=== PATIENT | male | born 1980 | race Caucasian/White ===

== ENCOUNTER 2019-01-10 15:41 | Observation (INO) | payer BC, OTHER ==
[~2019-01-10] VITALS: Ht 175.3 cm; Wt 74.9 kg
[2019-01-10 16:00] LABS: Base Excess Venous 1.8 mmol/L; Bicarbonate Venous 25.6 mmol/L (24.0-30.0); PCO2 Venous 44.1 mmHg (38-42); PO2 Venous 180 mmHg (38-42); pH Blood Venous 7.39 (7.34-7.37)
[2019-01-10 16:05] LABS: Chloride (POC) 107 mmol/L (98-108); Creatinine (POC) 1.2 mg/dL (0.8-1.3); Glucose (ISTAT POC) 89 mg/dL (70-99); Hemoglobin (POC) 13.9 g/dL (13.5-17.5); Potassium (POC) 3.7 mmol/L (3.5-5.5); Sodium (POC) 141 mmol/L (135-148); Total CO2 (POC) 25 mmol/L (21-32)
[2019-01-10 16:09] LABS: BASOPHILS ABSOLUTE AUTO 0.02 K/mm3 (0.00-0.23); BASOPHILS PERCENT AUTO 0 % (0-2); EOSINOPHILS ABSOLUTE AUTO 0.02 K/mm3 (0.00-0.68); EOSINOPHILS PERCENT AUTO 0 % (0-6); Hematocrit 45.7 % (37.0-53.0); Hemoglobin 15.2 g/dL (13.5-17.5); IMMATURE GRAN ABSOLUTE AUTO 0.01 K/mm3 (0.00-0.10); IMMATURE GRAN PERCENT AUTO 0 % (0-1); LYMPHOCYTES ABSOLUTE AUTO 1.75 K/mm3 (0.84-5.20); LYMPHOCYTES PERCENT AUTO 35 % (21-46); MONOCYTES ABSOLUTE AUTO 0.23 K/mm3 (0.16-1.47); MONOCYTES PERCENT AUTO 5 % (4-13); Mean Corpuscular HGB 31.5 pg (26.0-34.0); Mean Corpuscular HGB Conc 33.3 g/dL (31.5-36.5); Mean Corpuscular Volume 95 fL (80-100); Mean Platelet Volume 9.9 fL (9.1-12.4); NEUTROPHILS ABSOLUTE AUTO 2.92 K/mm3 (1.96-9.15); NEUTROPHILS PERCENT AUTO 59 % (41-73); Platelet Count 212 K/mm3 (150-400); RDW Coefficient Variation 12.5 % (11.7-14.2); RDW Standard Deviation 43.6 fL (35.1-46.3); Red Blood Cell Count 4.82 M/mm3 (4.30-5.90); White Blood Cell Count 4.95 K/mm3 (4.00-11.30)
[2019-01-10] MEDS ORDERED: Ibuprofen Ib200 MG PO (16:14)
[2019-01-10 16:29] LABS: Alanine Aminotransfer (ALT/SGP 18 U/L (12-78); Albumin, Blood 3.8 g/dL (3.4-5.0); Albumin/Globulin Ratio 1.2 (0.8-1.8); Alk Phos 53 U/L (50-136); Anion Gap 8 mmol/L (6-16); Aspartate Aminotrans (AST/SGOT 12 U/L (12-37); Bilirubin, Total 0.3 mg/dL (0.1-1.0); Blood Urea Nitrogen 9 mg/dL (8-24); Bun/Creatinine Ratio 9.4 (12.0-20.0); CO2, Blood 25 mmol/L (21-32); Calcium, Blood 8.6 mg/dL (8.5-10.1); Chloride, Blood 108 mmol/L (98-108); Creatinine, Blood 0.96 mg/dL (0.60-1.20); Globulin, Blood 3.3 g/dL (2.2-4.0); Glomerular Filtration Rate >60 (60-); Glucose, Blood 90 mg/dL (70-99); Potassium, Blood 3.9 mmol/L (3.5-5.5); Salicylate <1.7 mg/dL (2.8-20.0); Sodium, Blood 141 mmol/L (136-145); Total Protein, Blood 7.1 g/dL (6.4-8.2)
[2019-01-10 16:34] LABS: Acetaminophen, Random <2.0 ug/mL (10.0-30.0)
[2019-01-10 16:42] LABS: Source, Urine Clean Catch
[2019-01-10 17:02] LABS: Bilirubin, Urine Neg (Neg); Blood, Urine Neg (Neg); Glucose Qualitative, Urine Neg (Neg); Ketones, Urine Neg (Neg); Leukocyte Esterase, Urine 2+ (Neg); Nitrite, Urine Neg (Neg); Protein, Urine Neg (Neg); Specific Gravity, Urine 1.005 (1.003-1.022); Urobilinogen, Urine NORM (Normal); pH, Urine 6.5 (5.0-8.0)
[2019-01-10 17:04] LABS: Appearance, Urine Clear (Clear); Color, Urine Yellow (P-Yellow)
[2019-01-10 17:26] LABS: Bacteria Few /hpf; Red Blood Cells, Urine 0-2 /hpf (0-2); Squamous Epithelial Cells Few /hpf (Few)
[2019-01-10 17:47] LABS: U Amphetamine Screen Not Detected; U Barbituate Screen Not Detected; U Benzodiazapine Screen Not Detected; U Buprenorphine Screen Not Detected; U Cannabinoids Screen Not Detected; U Cocaine Screen Not Detected; U Methadone Screen Not Detected; U Methamphetamine Screen Not Detected; U Opiates Screen Not Detected; U Oxycodone Screen Not Detected; U Phencyclidine Screen Not Detected; U Propoxyphene Screen Not Detected
[2019-01-10] MEDS ORDERED: CYCL10 PO (18:45)
--- NOTE | 2019-01-10 18:53 | NUR ---
PT DENIES AND S.I. AND THAT HE ONLY HAD BACK PAIN AND NEEDED TO SLEEP.
--- NOTE | 2019-01-10 19:35 | NUR ---
1830... PT WAS ADMITED TO ICU-9 VIA [facility]. PT STOOD WITH SL SBA TO TRANSFER TO BED. PT IS A/O BUT DOZES OFF TO SLEEP WHEN LEFT ALONE. PT DENIES S.I. AND ONLY HAVING PROBLEM SLEEPING AND HAVING CHRONIC BACK PAIN. VSS. PT DENIES CURRENT PAIN OR NEED TO VOID. PT GAVE VERBAL CONSENT AND SIGNED INTAKE PAPERS. PT REQUESTED HIS PERSONAL PHONE TO BE LEFT AT BED SIDE. PT HAS BILATERAL AC IV SITES THAT ARE SL.
--- NOTE | 2019-01-10 19:50 | NUR ---
PATIENT SLEEPING WITH REGULAR UNLABORED RESP, AWAKENS TO SLIGHT STIMULI. ANSWERING QUESTIONS EASILY AND FOLLOWING DIRECTIONS. PATIENT DENIES URGE TO HURT SELF AND DENIES THAT INITIAL OVER DOSE WAS AN ATTEMPT TO END HIS LIFE "I JUST WANTED TO SLEEP" PLAN TO KEEP EMILY TO ROOM OPEN WHEN STAFF IS NOT IN ROOM. PATIENT VERBALIZED UNDERSTANDING THAT HE WILL NEED A STAFF MEMBER IN ROOM WHEN UP DUE TO RISK OF FALL DUE TO OVER DOSE ON FLEXERIL. POISON CONTROL GIVEN UP DATE ON PATIENT, NO NEW RECOMMENDATIONS.
--- NOTE | 2019-01-10 20:55 | NUR ---
PATIENT SLEEPING WITH RESP EVEN AND UNLABORED. AWAKENS TO SLIGHT STIMULI, ANSWERING ADMIT QUESTIONS. SITTING AT SIDE OF BED TO URINATE. PATIENT FALLING BACK TO SLEEP WHEN UNDISTURBED. REMAINS ON RA.
[2019-01-11 03:58] LABS: BASOPHILS ABSOLUTE AUTO 0.02 K/mm3 (0.00-0.23); BASOPHILS PERCENT AUTO 0 % (0-2); EOSINOPHILS ABSOLUTE AUTO 0.03 K/mm3 (0.00-0.68); EOSINOPHILS PERCENT AUTO 1 % (0-6); Hematocrit 42.6 % (37.0-53.0); Hemoglobin 13.8 g/dL (13.5-17.5); IMMATURE GRAN ABSOLUTE AUTO 0.01 K/mm3 (0.00-0.10); IMMATURE GRAN PERCENT AUTO 0 % (0-1); LYMPHOCYTES ABSOLUTE AUTO 1.76 K/mm3 (0.84-5.20); LYMPHOCYTES PERCENT AUTO 36 % (21-46); MONOCYTES PERCENT AUTO 6 % (4-13); Mean Corpuscular HGB 30.7 pg (26.0-34.0); Mean Corpuscular HGB Conc 32.4 g/dL (31.5-36.5); Mean Corpuscular Volume 95 fL (80-100); Mean Platelet Volume 9.9 fL (9.1-12.4); NEUTROPHILS ABSOLUTE AUTO 2.73 K/mm3 (1.96-9.15); NEUTROPHILS PERCENT AUTO 56 % (41-73); Platelet Count 195 K/mm3 (150-400); RDW Coefficient Variation 13.1 % (11.7-14.2); RDW Standard Deviation 44.5 fL (35.1-46.3); White Blood Cell Count 4.85 K/mm3 (4.00-11.30)
[2019-01-11 04:15] LABS: Anion Gap 6 mmol/L (6-16); Blood Urea Nitrogen 8 mg/dL (8-24); Bun/Creatinine Ratio 8.8 (12.0-20.0); CO2, Blood 26 mmol/L (21-32); Chloride, Blood 113 mmol/L (98-108); Creatinine, Blood 0.91 mg/dL (0.60-1.20); Glomerular Filtration Rate >60 (60-); Glucose, Blood 85 mg/dL (70-99); Magnesium, Blood 2.2 mg/dL (1.6-2.4); Potassium, Blood 4.1 mmol/L (3.5-5.5); Sodium, Blood 145 mmol/L (136-145)
--- NOTE | 2019-01-11 05:34 | NUR ---
SUMMARY PATIENT SLEEPING AWAKING WITH SLIGHT STIMULI. CONTINUES TO DENY DESIRE TO HARM SELF. 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
--- NOTE | 2019-01-11 07:53 | NUR ---
ASSUMED CARE OF PT. PT IS ALERT AND ORIENTED. PT DENIES SUICIDAL THOUGHTS AND PLANS OF SUICIDE. PT HAS BEEN MOSTLY SLEEPING SINCE ASSUMING CARE BUT EASILY AROUSABLE. PT'S ROOM CURTAINS ARE OPEN. THIS NURSE IS ABLE TO MONITOR PT CLOSELY.
--- NOTE | 2019-01-11 08:12 | NUR ---
SPOKE WITH DR. GARCIA FOR CLARIFICATION REGARDING TELEPSYCH NOTES SINCE PT IS NOT ON [address] GARCIA STATED THAT SINCE PT HAS VOLUNTARILY STAYED AND DENIES SUICIDAL IDEATION, THOUGHTS OR PLAN THAT PT DOES NOT NEED TO BE ON 2 MD. SHE STATED WE WILL BE WAITING FOR DR. MOORE TO REEVALUATE PT WHETHER THE NEED TO BE PLACED ON INVOLUNTARY HOLD OR INPATIENT PSYCH. SHE ORDERED TO LOW RISK FOR SUICIDE WATCH.
--- NOTE | 2019-01-11 14:01 | NUR ---
Met with patient in ICU 9 at 10am today. He reports he was not trying to harm himself, and had no intention of harming himself. He reports his erika was hurting and he took his Flexeril. It kept hurting throughout the day and he took more. He also reported he had a bottle of wine. He was supposed to go to work last evening, but laid down on the couch. He reporrts he does not remember what happened after that. He is oriented that he is in ICU. His ex-girlfriend visisted during this interview. She is the one who came home and called EMS because he was "acting different". She stated "no" to question of his self harm to self. Patient appears to have poor insight and may be of lower IQ. 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 He states it is all his fault as he cheated on her multiple times. He is originally from [place] and his parents live there, and he speaks with them regulary. He has 2 children. His son, 13, is with his brother in [place]. He ro=eports "it's complicated" and did not go into detail He is estranged from his brother, and has also not had contact with his daughter in years. He was not interested in seeing a therapist, as he had a "bad experience" 2-3 years go with is son. Fortson he was being judged. He denies family hx of depression and history of depression for himself. He did mention he was on Seroquel "1000mg" 13-14 years ago for sleep. Safety Plan was not completed as he did not see the need to. Plan seet left with him and Crisis numbers reviewed with him. Jacquelin Cobian M.Ed., [facility]-c reviewed with him. He
--- NOTE | 2019-01-11 14:11 | NUR ---
EMILY MORELAND AT BEDSIDE AT THIS TIME TALKING TO PT AND EX-GF
[2019-01-11] MEDS ORDERED: OMEPRAZOLE20 MG PO (15:42)
--- NOTE | 2019-01-11 15:55 | NUR ---
DISCHARGE INSTRUCTION PACKET WAS GIVEN TO PATIENT.
--- NOTE | 2019-01-11 18:11 | NUR ---
Stephen appeared pleasant and welcoming. his SO, Alejandra was present and supportive. He tells me "this won't happen again" and he was not trying to end his life. He smiles easily and made little jokes. Non-spiritism, but responded well to encouragement. He is being d/c soon.
== END 2019-01-11 15:56 | disposition home or self-care (01) ==
LOC: ER 15:41 → ICUW 15:42
PROVIDERS: Emergency Medicine; ADMIT Internal Medicine
DX: T48.1X1A Poisoning by skeletal muscle relaxants [neuromuscular blocking agents], accidental (unintentional), initial encounter (principal); T50.901A Poisoning by unspecified drugs, medicaments and biological substances, accidental (unintentional), initial encounter; F43.20 Adjustment disorder, unspecified; G92 Toxic encephalopathy; G89.29 Other chronic pain; M54.9 Dorsalgia, unspecified; K21.9 Gastro-esophageal reflux disease without esophagitis; Z91.048 Other nonmedicinal substance allergy status; Z79.1 Long term (current) use of non-steroidal anti-inflammatories (NSAID); Z79.899 Other long term (current) drug therapy
CPT/HCPCS: 36415; 71045; 80047; 80048; 80053; 81001; 82803; 83735; 85014; 85025; 87086; 93005; 93010; 96361; 96372; 96374; 99285-25; G0378; G0480; J1650; J2310; J2405; J7030; Q3014